=== PATIENT | male | born 1945 | race African-American/Black ===

== ENCOUNTER 2017-11-05 12:57 | Inpatient (IN) | payer OTHER ==
[~2017-11-05] VITALS: Ht 177.8 cm; Wt 68.5 kg
[2017-11-05] MEDS ORDERED: ACETAMINOP160 MG/51 ORAL (13:14)
[2017-11-05] MEDS ORDERED: CATAPRES0.1 MG ORAL (13:14)
[2017-11-05] MEDS ORDERED: BENADRYL25 MG ORAL (13:14)
[2017-11-05] MEDS ORDERED: CHLORPROMAZINE50 MG PO (13:14)
[2017-11-05] MEDS ORDERED: DUONEB 0.5-3(2.53 ML HHN (13:14)
[2017-11-05] MEDS ORDERED: ENEMA133 M1 RC (13:14)
[2017-11-05] MEDS ORDERED: ATORVASTATIN CA20 MG ORAL (13:14)
[2017-11-05] MEDS ORDERED: HYDRALAZINE HCL50 MG ORAL (13:14)
[2017-11-05] MEDS ORDERED: GUAIFENESI100 MG/5 M ORAL (13:14)
[2017-11-05] MEDS ORDERED: FAMOTIDINE20 MG ORAL (13:14)
[2017-11-05] MEDS ORDERED: FERROUS SULFAT325 MG ORAL (13:14)
[2017-11-05] MEDS ORDERED: COLACE100 MG ORAL (13:14)
[2017-11-05] MEDS ORDERED: BACLOFEN10 MG ORAL (13:14)
[2017-11-05] MEDS ORDERED: BENAZEPRIL HCL20 MG ORAL (13:14)
[2017-11-05] MEDS ORDERED: Vancomycin 1.5gm/D5W 250ml 250 ML IVPB ONE (13:15)
[2017-11-05 13:27] LABS: HEMATOCRIT 32.8 % (42.0-52.0); MEAN CORPUSCULAR VOLUME 88 FL (80-99); PLATELET COUNT 205 K/UL (150-450); RED BLOOD COUNT 3.72 M/UL (4.70-6.10); RED CELL DISTRIBUTION WIDTH 11.6 % (11.6-14.8); WHITE BLOOD COUNT 16.2 K/UL (4.8-10.8)
--- NOTE | 2017-11-05 13:29 | Emergency Room Report ---
History of Present Illness General Chief Complaint: Dyspnea/Respdistress Source: Patient Present Illness HPI 72-year-old male with history of hypertension, diabetes, hyperlipidemia, recent cervical spine surgery, as well as stroke with residual left hemiparesis is sent from [facility]. for low oxygen sats. Patient reports no complaints at all, he reports no obvious trouble breathing and reports he is not in any pain, however he is very drowsy. He is alert and oriented to person place situation time, but he appears to be too drowsy to be a reliable historian right now. Allergies: Coded Allergies: No Known Allergies (Unverified , 11/05/17) Patient History Limited by: medical condition Past Medical History: see triage record Reviewed Nursing Documentation: PMH: Agreed; PSxH: Agreed Nursing Documentation-PMH Hx Hypertension: Yes Hx Cerebrovascular Accident: Yes Review of Systems All Other Systems: limited Physical Exam Vital Signs Date Time Temp Pulse Resp B/P (MAP) Pulse Ox O2 Delivery O2 Flow Rate FiO2 11/05/17 12:51 99.8 100 16 135/110 98 Room Air 99.9 Sp02 EP Interpretation: reviewed, abnormal - O2 sat low, and blood pressure low General Appearance: no apparent distress, moderate distress - Drowsy but arousable to verbal stimulus Head: normocephalic, atraumatic Eyes: bilateral eye normal inspection, bilateral eye PERRL, bilateral eye EOMI ENT: normal ENT inspection, hearing grossly normal, normal pharynx, no angioedema, normal voice, moist mucus membranes Neck: normal inspection, full range of motion, supple, supple/symm/no masses, other - Cervical spine with surgical incision wound and ilan clean dry and intact with no erythema or purulence or tenderness Respiratory: chest non-tender, lungs clear, decreased breath sounds - fair air exchange, chest symmetrical, palpation of chest normal Cardiovascular #1: normal peripheral pulses, regular rate, rhythm Cardiovascular #2: 1+ radial (R), 1+ radial (L), 1+ dorsalis pedis (R), 1+ dorsalis pedis (L) Gastrointestinal: normal inspection, non tender, soft, no mass, no guarding, no rebound Rectal: deferred Genitourinary: normal inspection, no CVA tenderness, penis normal Musculoskeletal: back normal, gait/station normal, normal range of motion, non- tender, no calf tenderness Neurologic: responsive - Drowsy but responsive, top stop attacher III-XII nml as tested, motor strength/tone normal - Left upper and left lower extremity weakness as well as mild right lower extremity weakness, sensory intact - Grossly, speech normal Psychiatric: judgement/insight normal, memory normal, mood/affect normal, no suicidal/homicidal ideation Skin: normal color, no rash, warm/dry, normal turgor Lymphatic: no adenopathy Medical Decision Making Diagnostic Impression: Primary Impression: Pneumonia ER Course Patient here with low-grade fever, low O2 sats, concern for possible sepsis due to hypotension as well. He did receive lactic acid, blood cultures, broad- spectrum antibiotics and 30 mL per Kg IV fluid resuscitation upon the first hour of arrival.He was brought in with a pre-existing Thrasher catheter, this catheter was discontinued and a new catheter placed. I do not believe his surgical site to be a source of infection as clinically does not appear to be infected or broken down at all. Patient found to have likely pneumonia, blood pressure improved, will admit after CTA chest for PE evaluation. Diagnosis sepsis. EKG Diagnostic Results EKG Time: 13:08 EP Interpretation: RBBB, LVH criteria Rate: tachycardiac Rhythm: NSR ST Segments: no acute changes ASA given to the pt in ED: No Rhythm Strip Diag. Results Rhythm Strip Time: 13:27 Rate: 100 Rhythm: NSR, no PVC's, no ectopy Chest X-Ray Diagnostic Results Chest X-Ray Diagnostic Results : Chest X-Ray Ordered: Yes # of Views/Limited/Complete: 1 View Indication: Shortness of Breath EP Interpretation: Yes Interpretation: no effusion, no pneumothorax, other - RML/RLL consolidation Impression: Other - RML/RLL Pneumonia Electronically Signed by: Cameron Flanagan MD Reevaluation Time: 14:19 Last Vital Signs Date Time Temp Pulse Resp B/P (MAP) Pulse Ox O2 Delivery O2 Flow Rate FiO2 11/05/17 12:51 99.8 100 16 135/110 98 Room Air 99.9 Status: improved Reevaluation Impression A repeat focused sepsis examination reveals patient with improvement, blood pressure much improved patient alert oriented to person place situation time after fluid status, actually requesting pain medication now for his neck pain from his recent surgery. Disposition: ADMITTED INPATIENT Admit Decision Time: 14:19 Condition: Improved CAMERON FLANAGAN M.D 1, 2018 13:29
--- NOTE | 2017-11-05 13:30 | Emergency Room Report ---
Sepsis Event Note Evaluation Current Stage of Sepsis: Septic Shock Possible Source: Pulmonary Focused Exam Allergies: Coded Allergies: No Known Allergies (Unverified , 11/05/17) Date Exam Occurred: Nov 05, 2017 Time Exam Occurred: 13:29 Laboratory Studies Laboratory Tests Test 11/05/17 13:05 White Blood Count Pending Red Blood Count Pending Hemoglobin Pending Hematocrit Pending Mean Corpuscular Volume Pending Mean Corpuscular Hemoglobin Pending Mean Corpuscular Hemoglobin Concent Pending Red Cell Distribution Width Pending Platelet Count Pending Mean Platelet Volume Pending Neutrophils (%) (Auto) Pending Lymphocytes (%) (Auto) Pending Monocytes (%) (Auto) Pending Eosinophils (%) (Auto) Pending Basophils (%) (Auto) Pending Prothrombin Time Pending Prothromb Time International Ratio Pending Activated Partial Thromboplast Time Pending Urine Color Pending Urine Appearance Pending Urine pH Pending Urine Specific [place] Pending Urine Protein Pending Urine Glucose (UA) Pending Urine Ketones Pending Urine Occult Blood Pending Urine Nitrite Pending Urine Bilirubin Pending Urine Urobilinogen Pending Urine Leukocyte Esterase Pending Sodium Level Pending Potassium Level Pending Chloride Level Pending Carbon Dioxide Level Pending Blood Urea Nitrogen Pending Creatinine Pending Estimat Glomerular Filtration Rate Pending Glucose Level Pending Lactic Acid Level Pending Calcium Level Pending Magnesium Level Pending Total Bilirubin Pending Aspartate Amino Transf (AST/SGOT) Pending Alanine Aminotransferase (ALT/SGPT) Pending Alkaline Phosphatase Pending Total Creatine Kinase Pending Creatine Kinase MB Pending Troponin I Pending Pro-B-Type Natriuretic Peptide Pending Total Protein Pending Albumin Pending Globulin Pending Vital Signs Last 24 Hour Vital Signs Date Time Temp Pulse Resp B/P (MAP) Pulse Ox O2 Delivery O2 Flow Rate FiO2 11/05/17 12:51 99.8 100 16 135/110 98 Room Air 99.9 Respiratory Exam: Diminished Air Movement Cardiovascular Exam: RRR, S1, S2, Murmur Capillary Refill: Less Than 2 Seconds Peripheral Pulse: Strong Pulse Location: Carotid Skin Exam: Normal CAMERON Garzon M.D Nov 05, 2017 13:30
[2017-11-05 13:34] LABS: APPEARANCE,URINE CLOUDY; BILIRUBIN, URINE NEGATIVE (NEGATIVE); GLUCOSE, URINE (UA) NEGATIVE (NEGATIVE); KETONES,URINE 1+ (NEGATIVE); LEUKOCYTE ESTERASE ,URINE 1+ (NEGATIVE); NITRITE,URINE NEGATIVE (NEGATIVE); PH,URINE 6 (4.5-8.0); PROTEIN,URINE 3+ (NEGATIVE); UROBILINOGEN,URINE 4 MG/DL (0.0-1.0)
[2017-11-05 13:35] LABS: COLOR,URINE YELLOW
[2017-11-05 13:41] LABS: ANION GAP 6 mmol/L (5-15); BLOOD UREA NITROGEN 26 mg/dL (7-18); CALCIUM 8.1 MG/DL (8.5-10.1); CARBON DIOXIDE 28 MMOL/L (21-32); CHLORIDE 101 MMOL/L (98-107); CREATININE 1.2 MG/DL (0.55-1.30); POTASSIUM 4.3 MMOL/L (3.5-5.1); SODIUM 135 MMOL/L (136-145)
[2017-11-05 13:49] VITALS: BP 104/87
[2017-11-05 13:55] LABS: ALANINE AMINOTRANSFERASE 28 U/L (12-78); ALBUMIN 2.1 G/DL (3.4-5.0); ALBUMIN/GLOBULIN RATIO 0.6 (1.0-2.7); ALKALINE PHOSPHATASE 55 U/L (46-116); ASPARTATE AMINO TRANSFERASE 35 U/L (15-37); BILIRUBIN,TOTAL 1.2 MG/DL (0.2-1.0); CKMB 2.7 NG/ML (0.0-3.6); CREATINE KINASE 92 U/L (26-308)
[2017-11-05 13:56] LABS: BILIRUBIN,DIRECT 0.3 MG/DL (0.0-0.3)
[2017-11-05] MEDS ORDERED: Piperacillin/Tazobactam 3.375 GM in D5W 55 ML IV SCH (14:00)
--- NOTE | 2017-11-05 14:27 | Diagnostic Imaging Report ---
Indication: Dyspnea Comparison: None A single view chest radiograph was obtained. Findings: Abnormal density in the retrocardiac aspect of the left lung base noted. The heart is mildly enlarged. Bones are osteopenic. IMPRESSION: Left basal pneumonia versus atelectasis. Cardiomegaly
[2017-11-05] MEDS ORDERED: Isovue-370 150ml vial INJ PRN (14:30)
[2017-11-05] MEDS ORDERED: Acetaminophen 500mg (ES) tab ORAL ONE ×2 (14:35→14:45)
--- NOTE | 2017-11-05 16:16 | Diagnostic Imaging Report ---
Indication: Chest pain Technique: Continuous helical transaxial imaging of the chest was obtained from the thoracic inlet to the upper abdomen during rapid intravenous contrast administration. Arterial phase of enhancement obtained. Coronal 2-D reformats were also obtained and maximum intensity projection images in multiple planes. Study obtained in a Siemens sensation [address] Automatic Exposure Control was utilized. Total Dose length Product (DLP): 575.[address] Dose Index Volume (CTDIvol): 15.64 mGy Comparison: None Findings: The pulmonary artery is well opacified and shows no filling defects. There is no adenopathy, pleural or pericardial effusions are identified. Aorta is normal in caliber with no evidence of dissection. There is dense organized consolidation of the left lower lobe and part of the right lower lobe. Findings suspicious for pneumonia. Correlate clinically. No adenopathy appreciated. The visualized part of the upper abdomen is unremarkable. There is a hiatal hernia present. IMPRESSION: No evidence of pulmonary embolus, aortic dissection or aneurysm. Bilateral basilar consolidation/airspace disease suspicious for pneumonia. Correlate clinically. The CT scanner at [facility] is accredited by the [employer] and the scans are performed using dose optimization techniques as appropriate to a performed exam including Automatic Exposure control.
[2017-11-05] MEDS ORDERED: Fleet's Enema 133ml RECTAL PRN (18:45)
[2017-11-05] MEDS ORDERED: Norco 5mg/325mg tab ORAL PRN ×2 (18:45)
[2017-11-05] MEDS ORDERED: Sennosides 8.6mg ORAL PRN (18:45)
[2017-11-05] MEDS ORDERED: Lactulose 20gm/30ml UDC ORAL PRN (19:14)
[2017-11-05 20:00] VITALS: BP 100/65
[2017-11-05] MEDS: Albuterol/Ipratropium 3ml neb HHN SCH ×2 (20:01→23:55)
[2017-11-05] MEDS: Metoprolol 25mg tab ORAL SCH (21:00)
[2017-11-05] MEDS: D5NS 1,000 ML IV SCH (21:14)
[2017-11-05] MEDS: Piperacillin/Tazobactam 3.375 GM in NS 110 ML IVPB SCH (21:25)
[2017-11-06] VITALS: BP 108/73
[2017-11-06] MEDS: Vancomycin 750mg/NS 250ml IVPB SCH ×2 (01:39→15:02)
--- NOTE | 2017-11-06 03:32 | Consultation ---
DATE OF CONSULTATION: 11/05/2017 CARDIOLOGY CONSULTATION CONSULTING PHYSICIAN: Oswaldo Harris M.D. REQUESTING PHYSICIAN: Kody Higgins M.D. REASON FOR CONSULTATION: Elevated troponin level suggesting acute myocardial infarction. HISTORY OF PRESENT ILLNESS: This 72-year-old disabled who is status post cervical laminectomy and has been rehabilitating at a senior living facility. He has a prior stroke with left-sided hemiparesis. He was noted to be hypoxic this afternoon and transported to the emergency room. The patient did not have any shortness of breath or chest pain, but has been increasingly weak, withdrawn and lethargic, although certainly arousable. On arrival to the emergency room, his vitals were notable for a blood pressure 135/110, heart rate 100, respiratory rate 16 and a temperature 99.9 degrees. A diagnostic workup undertaken included an abnormal troponin level of 0.958 prompting this consultation. PAST MEDICAL HISTORY: Cervical disc disease, status post left laminectomy, cerebrovascular disease with prior stroke and left hemiparesis, hypertension, hyperlipidemia, prostatic hypertrophy. MEDICATIONS: Prior to admission, reviewed and reconciled. ALLERGIES: None known. FAMILY HISTORY: Noncontributory. SOCIAL HISTORY: No record of smoking, alcohol, or substance abuse. REVIEW OF SYSTEMS: Cannot be reliably obtained from the patient, however, pertinent data as outlined above. PHYSICAL EXAMINATION: VITAL SIGNS: Blood pressure 104/87, pulse 116, temperature 100 degrees, oxygen saturation on room air 98%. NECK: Surgical site on neck is dry and healed. Jugular venous pressure normal. HEENT: Conjunctiva pink. Oropharynx clear. LUNGS: With coarse breath sounds and rhonchi. CARDIAC: Regular rhythm and rate. Normal S1 and S2 with a fourth heart sound. ABDOMEN: Soft and nontender. EXTREMITIES: No edema. NEUROLOGIC: Left hemiparesis is mild. LABORATORY AND DIAGNOSTIC DATA: Sodium 135, potassium 4.3, bicarbonate 28, BUN 26, creatinine 1.2 and glucose 146. Lactic acid is 2. Albumin is 2.1. Pro-natriuretic peptide is 3491. Troponin 0.966. White count 16.2 and hemoglobin 11. Urinalysis with 40 to 60 red cells and 2 to 4 white cells. Chest x-ray with cardiomegaly and possible retrocardiac infiltrate. EKG, sinus rhythm, right bundle-branch block, left ventricular hypertrophy, nonspecific ST change. CT angiogram of the chest was negative for pulmonary embolus. IMPRESSION: 1. Acute myocardial infarction likely precipitated by hypoxia. 2. Healthcare acquired pneumonia. 3. Cervical disc disease, status post recent laminectomy. 4. Cerebrovascular disease at baseline with left hemiparesis. 5. Hypertensive heart disease, now with lower range blood pressure. 6. Severe protein-calorie malnutrition. 7. Mild renal insufficiency. 8. Acute on chronic systolic and diastolic congestive heart failure. PLAN: 1. Cardiac monitoring. 2. Respiratory hygiene. 3. Nasal oxygen. 4. Bronchodilators. 5. Empiric antibiotics. 6. Hold furosemide. 7. Discontinue hydralazine until blood pressure parameters improves. 8. Maintain anti-platelet and anti-lipid therapy. 9. Continue beta-blockade. 10. Serial troponin levels. 11. We will adjust cardiovascular therapy based on clinical parameters. Oswaldo Harris M.D. DR: MARILU JOB#: [id number] CC:
[2017-11-06 04:00] VITALS: BP 120/75
[2017-11-06] MEDS: Piperacillin/Tazobactam 3.375 GM in NS 110 ML IVPB SCH ×3 (04:20→20:52)
[2017-11-06 05:07] LABS: HEMATOCRIT 29.9 % (42.0-52.0); MEAN CORPUSCULAR VOLUME 88 FL (80-99); PLATELET COUNT 199 K/UL (150-450); RED BLOOD COUNT 3.41 M/UL (4.70-6.10); RED CELL DISTRIBUTION WIDTH 11.7 % (11.6-14.8); WHITE BLOOD COUNT 14.5 K/UL (4.8-10.8)
[2017-11-06 05:40] LABS: ALANINE AMINOTRANSFERASE 24 U/L (12-78); ALBUMIN 1.9 G/DL (3.4-5.0); ALBUMIN/GLOBULIN RATIO 0.6 (1.0-2.7); ALKALINE PHOSPHATASE 51 U/L (46-116); ANION GAP 9 mmol/L (5-15); ASPARTATE AMINO TRANSFERASE 23 U/L (15-37); BILIRUBIN,TOTAL 0.8 MG/DL (0.2-1.0); BLOOD UREA NITROGEN 23 mg/dL (7-18); CALCIUM 7.7 MG/DL (8.5-10.1); CARBON DIOXIDE 26 MMOL/L (21-32); CHLORIDE 105 MMOL/L (98-107); CHOLESTEROL 90 MG/DL (< 200); HDL CHOLESTEROL 41 MG/DL (40-60); POTASSIUM 3.5 MMOL/L (3.5-5.1); SODIUM 139 MMOL/L (136-145); TRIGLYCERIDES 57 MG/DL (30-150)
[2017-11-06] MEDS ORDERED: chlorproMAZINE 25mg tab ORAL PRN (07:00)
[2017-11-06] MEDS: Albuterol/Ipratropium 3ml neb HHN SCH ×3 (07:45→19:18)
[2017-11-06 08:00] VITALS: BP 124/74
[2017-11-06] MEDS ORDERED: HydrALAZINE 50mg tab ORAL SCH (09:00)
[2017-11-06] MEDS: Benazepril 10mg tab ORAL SCH (10:16)
[2017-11-06] MEDS: Metoprolol 25mg tab ORAL SCH ×2 (10:16→21:04)
[2017-11-06] MEDS: Ascorbic Acid 500mg tab ORAL SCH (10:16)
[2017-11-06] MEDS: D5NS 1,000 ML IV SCH ×2 (10:17→23:58)
--- NOTE | 2017-11-06 10:36 | Diagnostic Imaging Report ---
Chest PA and lateral views INDICATION: Cough COMPARISON: Chest x-ray dated 11/05/17 FINDINGS: PA and lateral views of the chest are obtained. Prominent heart size. Atherosclerotic vascular disease. Increasing bilateral lower lung zone opacities with obscuration of the left hemidiaphragm. IMPRESSION: Increasing bilateral lower lung zone opacities with obscuration of the left hemidiaphragm.
[2017-11-06 12:00] VITALS: BP 159/102
[2017-11-06] MEDS: Zinc Sulfate 220mg cap ORAL SCH (12:14)
[2017-11-06] MEDS: Docusate 100mg cap ORAL SCH ×2 (12:15→18:27)
[2017-11-06] MEDS: Acetaminophen 650mg/20.3ml ORAL PRN ×2 (14:09→20:51)
[2017-11-06 16:00] VITALS: BP 120/80
--- NOTE | 2017-11-06 16:09 | History & Physical ---
History and Physical History & Physicial #[id number] pna uti hx of cva with left HP HTN, HLD troponin positive Shahla Grissom DO Nov 06, 2017 16:09
[2017-11-06 20:00] VITALS: BP 154/90
[2017-11-06] MEDS ORDERED: Metoprolol 25mg tab ORAL SCH (22:00)
--- NOTE | 2017-11-06 22:31 | Progress Note ---
DATE: 11/06/2017 Cardiology consult progress note SUBJECTIVE: The patient remains tachycardic and hypoxic with some congestion and shortness of breath. Echocardiogram today revealed normal ejection fraction, mild aortic stenosis with valve area 1.9. Mildly increased pulmonary venous systolic pressure, pleural effusions, and small pericardial effusion noted. Troponin level has decreased from 0.966 to 0.764. PHYSICAL EXAMINATION: VITAL SIGNS: Blood pressure 154/90, heart rate 133, respiratory rate 20 to 24, T-max 100.6. LUNGS: Bilateral rhonchi diminished at the bases. HEART: Regular rhythm. Rapid rate. Normal S1, S2. ABDOMEN: Soft EXTREMITIES: Trace edema. IMPRESSION: 1. Bilateral pneumonia. 2. Hypoxia. 3. Pleural effusions. 4. Small pericardial effusion of no hemodynamic significance. 5. Secondary sinus tachycardia. 6. Hypoxia. 7. Degenerative aortic valve stenosis. 8. Mild pulmonary hypertension. PLAN: 1. Advance beta-destiny. 2. Continue hydration. 3. Antimicrobials. 4. Respiratory hygiene. 5. Oxygen supplementation. 6. DVT prophylaxis remains high risk. 7. Consider thoracentesis. Oswaldo Harris M.D. DR: Presley JOB#: [id number] CC:
--- NOTE | 2017-11-06 23:31 | History and Physical Report ---
DATE OF ADMISSION: 11/05/2017 REASON FOR ADMISSION: Shortness of breath. HISTORY OF PRESENT ILLNESS: The patient is a 72-year-old gentleman with history of hypertension, diabetes, recent cervical spine surgery states he has not ambulated since August. He has history of stroke with dense left hemiparesis, found with low O2 saturations. He has had cough with some phlegm production. He has a history of COPD and smoking. Does not use inhalers or breathing treatments at home. He has no recent nausea, vomiting, or diarrhea. PAST MEDICAL HISTORY: Again diabetes, hypertension, hyperlipidemia, stroke with left hemiparesis, COPD. SURGICAL HISTORY: Includes recent cervical spine surgery. MEDICATIONS: Pre-hospital and present medications reviewed, reconciled, documented in the electronic medical record by dose, frequency, and route. SOCIAL HISTORY: Currently negative for tobacco, alcohol, or drugs. FAMILY HISTORY: Noncontributory. PHYSICAL EXAMINATION: GENERAL: At the time my exam, he is alert, he is oriented. He is in no acute respiratory distress. VITAL SIGNS: He is currently febrile at 101.4, pulse 133, respirations 20, 98% on room air. HEENT: Normocephalic and atraumatic. Oropharynx is moist. Poor dentition is noted. LUNGS: Bilateral rhonchi. Decreased breath sounds at the bases. HEART: Regular but tachy. ABDOMEN: Soft and nontender. EXTREMITIES: Lower extremity wounds are noted. Hemiparesis noted in left upper and lower extremity with normal function of the right upper and lower extremity. LABORATORY AND DIAGNOSTIC DATA: White count is 14.5, hemoglobin 10, and platelets are 199. Sodium is 139, potassium 3.5, chloride 105, bicarb 26, BUN 23, creatinine 1, glucose 81. His troponin, one was 0.966 and second one was 0.764. TSH is low at 0.335. His urinalysis is positive for leukocyte esterase. Chest x-ray with left lower lobe infiltrate. CT scan of his chest was obtained, no evidence of PE or aortic dissection, bilateral basal consolidation, suspicious for pneumonia. ASSESSMENT AND PLAN: 1. Pneumonia. 2. Urinary tract infection. 3. Sepsis. 4. Febrile. 5. Diabetes. 6. Hypertension. 7. Recent spine surgery. 8. History of stroke with dense left hemiparesis. PLAN: He is currently receiving IV antibiotics including vancomycin and Zosyn. We will continue follow up blood, urine, and sputum cultures. His urine is growing gram-negative rods. Repeat labs and chest x-ray in the morning. Tylenol for fever. Wound care. P.o. as tolerated. Aspiration precautions at all times and we will continue to follow the patient for the remainder of his hospital stay. Shahla Grissom D.O. DR: Faith JOB#: [id number] CC:
[2017-11-07] MEDS: Albuterol/Ipratropium 3ml neb HHN SCH ×4 (01:10→21:23)
[2017-11-07 04:00] VITALS: BP 140/90
[2017-11-07] MEDS: Vancomycin 1gm/D5W 275ml IVPB SCH ×4 (04:03→16:30)
[2017-11-07 05:00] LABS: HEMOGLOBIN 9.1 G/DL (14.2-18.0); MEAN CORPUSCULAR VOLUME 88 FL (80-99); PLATELET COUNT 173 K/UL (150-450); RED BLOOD COUNT 2.96 M/UL (4.70-6.10); RED CELL DISTRIBUTION WIDTH 11.6 % (11.6-14.8); WHITE BLOOD COUNT 14.4 K/UL (4.8-10.8)
[2017-11-07] MEDS: Piperacillin/Tazobactam 3.375 GM in NS 110 ML IVPB SCH ×3 (05:11→21:12)
[2017-11-07 06:18] LABS: ANION GAP 8 mmol/L (5-15); BLOOD UREA NITROGEN 19 mg/dL (7-18); CALCIUM 7.8 MG/DL (8.5-10.1); CARBON DIOXIDE 25 MMOL/L (21-32); CHLORIDE 107 MMOL/L (98-107); POTASSIUM 3.6 MMOL/L (3.5-5.1); SODIUM 140 MMOL/L (136-145)
[2017-11-07 08:00] VITALS: BP 150/96
--- NOTE | 2017-11-07 08:38 | Pulmonology Progress Note ---
Assessment/Plan Assessment/Plan ASSESSMENT AND PLAN: 1. Pneumonia. 2. Urinary tract infection. 3. Sepsis. 4. Febrile. 5. Diabetes. 6. Hypertension. 7. Recent spine surgery. 8. History of stroke with dense left hemiparesis. 9. NSTEMI 10 LUIS with obstruction on echo watch IO po Iv abx cxr still with bilateral infiltrates nebs wound care sherman for now check labs and trending tropopnins Subjective Constitutional: Reports: no symptoms HEENT: Repors: no symptoms Respiratory: Reports: no symptoms Cardiovascular: Reports: no symptoms Gastrointestinal/Abdominal: Reports: no symptoms Allergies: Coded Allergies: No Known Allergies (Unverified , 11/05/17) Subjective no cp tolerating po purulent phlegm expectorated on o2 positive uop Objective Last 24 Hour Vital Signs Date Time Temp Pulse Resp B/P (MAP) Pulse Ox O2 Delivery O2 Flow Rate FiO2 11/07/17 08:00 98.8 92 20 150/96 96 Nasal Cannula 2.0 98.8 11/07/17 04:00 88 11/07/17 04:00 97.2 92 22 140/90 96 Nasal Cannula 2.0 97.2 11/07/17 01:20 97 22 94 Nasal Cannula 2.0 28 11/07/17 01:09 97 22 94 Nasal Cannula 2.0 28 11/07/17 01:09 28 11/06/17 23:57 97 134/90 11/06/17 21:21 98.9 11/06/17 21:04 133 154/90 11/06/17 20:51 100.6 11/06/17 20:00 100.6 133 22 154/90 94 Room Air 100.6 11/06/17 19:26 125 24 97 Room Air 2.0 28 11/06/17 19:16 28 11/06/17 19:15 125 24 93 Room Air 2.0 28 11/06/17 19:07 125 24 Room Air 21 11/06/17 16:00 126 11/06/17 16:00 101.0 121 24 120/80 93 Room Air 101.0 11/06/17 14:09 101.4 11/06/17 13:59 133 20 98 Room Air 11/06/17 13:49 137 20 91 Room Air 21 11/06/17 12:00 113 11/06/17 12:00 101.4 117 20 159/102 92 Room Air 101.4 11/06/17 10:16 131 124/74 11/06/17 10:16 124/74 Intake and Output 11/06/17 11/07/17 19:00 07:00 Intake Total 1743.334 ml 1717.500 ml Output Total 750 ml 850 ml Balance 993.334 ml 867.500 ml Intake Oral 700 ml 480 ml IV Total 1043.334 ml 1237.500 ml Output Urine Total 750 ml 850 ml General Appearance: WD/WN HEENT: atraumatic, anicteric Respiratory/Chest: crackles/rales, rhonchi Cardiovascular: normal rate, regular rhythm Abdomen: soft, non tender, non distended Skin: no ulcers 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, alert, oriented x 3 Microbiology Date/Time Source Procedure Growth Status 11/05/17 13:05 Blood Blood Culture - Preliminary NO GROWTH AFTER 24 HOURS Resulted 11/05/17 13:05 Blood Blood Culture - Preliminary NO GROWTH AFTER 24 HOURS Resulted 11/05/17 13:05 Urine,Clean Catch Urine Culture - Final Escherichia Coli Complete 11/05/17 15:30 Rectum VRE Culture - Final Enterococcus Faecalis - Vre Complete Laboratory Tests 11/07/17 00:30: Vancomycin Level Trough 13.4H 11/07/17 03:00: White Blood Count 14.4H, Red Blood Count 2.96L, Hemoglobin 9.1L, Hematocrit 26.0L, Mean Corpuscular Volume 88, Mean Corpuscular Hemoglobin 30.9, Mean Corpuscular Hemoglobin Concent 35.1, Red Cell Distribution Width 11.6, Platelet Count 173, Mean Platelet Volume 6.6, Neutrophils (%) (Auto) , Lymphocytes (%) ( Auto) , Monocytes (%) (Auto) , Eosinophils (%) (Auto) , Basophils (%) (Auto) , Differential Total Cells Counted 100, Neutrophils % (Manual) 87H, Lymphocytes % (Manual) 8L, Monocytes % (Manual) 5, Eosinophils % (Manual) 0, Basophils % ( Manual) 0, Band Neutrophils 0, Platelet Estimate Adequate, Platelet Morphology Normal, Hypochromasia 1+, Sodium Level 140, Potassium Level 3.6, Chloride Level 107, Carbon Dioxide Level 25, Anion Gap 8, Blood Urea Nitrogen 19H, Creatinine 1.0, Estimat Glomerular Filtration Rate , Glucose Level 90, Calcium Level 7.8L, Magnesium Level 2.2, Troponin I 0.765H, Pro-B-Type Natriuretic Peptide 2360H Current Medications Medications (Trade) Dose Ordered Sig/[place] Route PRN Reason Start Time Stop Time Status Last Admin Dose Admin Acetaminophen (Tylenol) 650 mg Q6H PRN ORAL Mild Pain/Temp > 100.5 11/05/17 18:45 12/05/17 18:44 11/06/17 20:51 Acetaminophen/ Hydrocodone Bitart ([place] 5/325) 1 tab Q6H PRN ORAL MODERATE PAIN (4-6) 11/05/17 18:45 11/12/17 18:44 Acetaminophen/ Hydrocodone Bitart ([place] 5/325) 2 tab Q6H PRN ORAL Severe Pain (Pain Scale 7-10) 11/05/17 18:45 11/12/17 18:44 Albuterol/ Ipratropium (Albuterol/ Ipratropium) 3 ml Q6HRT HHN 11/05/17 19:00 11/10/17 18:59 11/07/17 01:10 Ascorbic Acid (Vitamin C) 500 mg DAILY ORAL 11/06/17 09:00 12/06/17 08:59 11/06/17 10:16 Atorvastatin Calcium (Lipitor) 10 mg BEDTIME ORAL 11/05/17 21:00 12/05/17 20:59 11/06/17 20:51 Baclofen (Lioresal) 10 mg Q8H PRN ORAL intractable hiccups 11/05/17 19:11 12/05/17 19:10 Benazepril HCl (Lotensin) 20 mg DAILY ORAL 11/06/17 09:00 12/06/17 08:59 11/06/17 10:16 Chlorpromazine (Thorazine) 50 mg TIDPRN PRN ORAL HICCUPS 11/06/17 07:00 12/06/17 06:59 Clonidine HCl (Catapres Tab) 0.1 mg EVERY 6 HOURS PRN ORAL For High Blood Pressure 11/05/17 18:45 12/05/17 18:44 Dextrose/Sodium Chloride 1,000 ml @ 75 mls/hr [id number] IV 11/05/17 19:00 12/05/17 18:59 11/06/17 23:58 Diphenhydramine HCl (Benadryl) 25 mg Q4H PRN ORAL Itching 11/05/17 19:13 12/05/17 19:12 11/07/17 04:30 Docusate Sodium (Colace) 100 mg TWICE A DAY ORAL 11/06/17 09:00 12/06/17 08:59 11/06/17 18:27 Famotidine (Pepcid) 20 mg EVERY 12 HOURS ORAL 11/05/17 21:00 12/05/17 20:59 11/06/17 20:51 Ferrous Sulfate (Feosol) 325 mg DAILY ORAL 11/06/17 09:00 12/06/17 08:59 11/06/17 10:16 Iopamidol (Isovue-370 150ml) 150 ml NOW PRN INJ Radiology Procedure 11/05/17 14:30 11/07/17 14:22 Lactulose (Cephulac) 20 gm Q6H PRN ORAL Constipation 11/05/17 19:14 12/05/17 19:13 Metoprolol Tartrate (Lopressor) 50 mg Q12HR ORAL 11/07/17 09:00 12/07/17 08:59 Multivitamins (Multivitamins) 1 tab DAILY ORAL 11/06/17 09:00 12/06/17 08:59 11/06/17 10:16 Ondansetron HCl (Zofran ODT) 4 mg Q6H PRN ORAL Nausea & Vomiting 11/05/17 19:12 12/05/17 19:11 Piperacillin Sod/ Tazobactam Sod 3.375 gm/Sodium Chloride 110 ml @ 27.5 mls/hr Q8H IVPB 11/05/17 20:30 11/12/17 23:59 11/07/17 05:11 Sennosides (Senokot) 2 tab HSPRN PRN ORAL Constipation 11/05/17 18:45 12/05/17 18:44 Sodium Phosphate (Fleet's Sodium Phosl Enema) 133 ml DAILYPRN PRN RECTAL CONSTIPATION 11/05/17 18:45 12/05/17 18:44 Vancomycin HCl (Vanco rx to dose) 1 ea DAILY PRN MISC Per rx protocol 11/05/17 19:30 12/05/17 19:29 Vancomycin HCl 1 gm/Dextrose 275 ml @ 183.708 mls/hr Q12H IVPB 11/07/17 03:00 11/12/17 02:59 11/07/17 04:03 Zinc Sulfate (Zinc Sulfate) 220 mg DAILY ORAL 11/06/17 09:00 12/06/17 08:59 11/06/17 12:14 Shahla Grissom DO Nov 07, 2017 08:38
[2017-11-07] MEDS: Benazepril 10mg tab ORAL SCH (09:10)
[2017-11-07] MEDS: Ascorbic Acid 500mg tab ORAL SCH (09:10)
[2017-11-07] MEDS: Docusate 100mg cap ORAL SCH ×2 (09:10→17:30)
[2017-11-07] MEDS: Zinc Sulfate 220mg cap ORAL SCH (09:11)
[2017-11-07] MEDS: Metoprolol 25mg tab ORAL SCH ×2 (09:11→21:15)
--- NOTE | 2017-11-07 10:39 | Diagnostic Imaging Report ---
INDICATION: COPD COMPARISON: Chest x-ray dated 11-06-17 FINDINGS: Single frontal view demonstrates prominent heart size. Bilateral lower lung zone opacities, grossly unchanged. The visualized osseous structures are within normal limits. IMPRESSION: Prominent heart size. Bilateral lower lung zone opacities, grossly unchanged.
[2017-11-07] MEDS: D5NS 1,000 ML IV SCH ×2 (11:00→23:18)
[2017-11-07] MEDS ORDERED: D5NS 1000ml IV ONE ×2 (11:04→15:22)
[2017-11-07] MEDS ORDERED: Tubing IV Secondary IV ONE ×2 (11:04→15:22)
[2017-11-07 12:00] VITALS: BP 132/95
[2017-11-07] MEDS ORDERED: NS 500ML ONE (15:22)
[2017-11-07 16:00] VITALS: BP 148/98
--- NOTE | 2017-11-07 16:23 | Cardiology Report ---
APPROVED REPORT EXAM: Two-dimensional and M-mode echocardiogram with Doppler and color Doppler. INDICATION Acute myocard infarction M-Mode DIMENSIONS IVSd2.0 (0.7-1.1cm)Left Atrium (MM)4.6 (1.6-4.0cm) LVDd4.0 (3.5-5.6cm)Aortic Root3.4 (2.0-3.7cm) PWd1.5 (0.7-1.1cm)Aortic Cusp Exc.2.1 (1.5-2.0cm) LVDs1.7 (2.5-4.0cm) PWs2.0 cm Normal left ventricular chamber size, systolic function and wall motion. Left ventricular ejection fraction estimated to be 60-65%. Severe left ventricular hypertrophy. Small anterior and posterior pericardial effusion. Large posterior pleural effusion. Right cardiac chamber sizes are within normal limits. Mild left atrial enlargement by 2D. Focal aortic valve sclerosis with adequate cusp excursion. Thickened mitral valve leaflets with normal excursion. Systolic anterior motion of mitral leaflet (LUIS) consistent with obstructive cardiomyopathy. Mild mitral annulus and aortic root calcification. Pulmonic valve not well visualized. Normal tricuspid valve structure. IVC is normal in size and collapsible with respiration. A color flow and spectral Doppler study was performed and revealed: No aortic regurgitation. peak aortic valve gradient of 29mm Hg and a mean of 14 mmHg (may partially be due to increased subvalvular gradient) Aortic valve area 1.5 cm2 calculated by continuity equation. Peak LVOT gradient of 19mm Hg and a mean of 9 mmHg. Mild mitral regurgitation. Mitral diastolic function not obtainable due to A-FIB. Mild tricuspid regurgitation. Tricuspid systolic velocities suggests peak right ventricular systolic pressure of 40 mmHg Consistent with mild pulmonary hypertension. Critical criteria: JESSICA Farah and Dr. Harris have been notified on 11/06/17 at 11 pm
--- NOTE | 2017-11-07 17:04 | Cardiology Report ---
APPROVED REPORT EKG Measurement Heart [id number] Sinus tachycardia Right bundle branch block Left ventricular hypertrophy with repolarization abnormality Abnormal ECG
[2017-11-07 20:00] VITALS: BP 168/104
[2017-11-08 00:14] VITALS: BP 150/96
--- NOTE | 2017-11-08 02:00 | Progress Note ---
DATE: 11/07/2017 CARDIOLOGY PROGRESS NOTE SUBJECTIVE: The patient is seen and evaluated with his at bedside. The patient feels better today. Less short of breath. He is able to mobilize secretions better. Heart rate control is improved. OBJECTIVE: VITAL SIGNS: Blood pressure 153/96, pulse 92, respirations 20, afebrile, T-max 100.6 degrees, and oxygen saturation on two liters is 94% to 96%. LUNGS: Bilateral rales. Scattered rhonchi. No wheezing. HEART: Regular rhythm and rate. Normal S1 and S2 with a fourth heart sound. ABDOMEN: Soft and nontender. EXTREMITIES: No edema. LABORATORY AND DIAGNOSTIC DATA: White count 14.4 and hemoglobin 9.1. Potassium 3.6, BUN 19, creatinine 1.0, and magnesium 2.2. Troponin is 0.765. Pro-natriuretic peptide is 2360. Chest x-ray today reveals bilateral lower lung opacities without change. IMPRESSION: 1. Acute myocardial infarction, non-ST elevation type. 2. Hypoxia due to pneumonia. 3. Healthcare-acquired pneumonia. 4. Sepsis, recovering. 5. Urinary tract infection. 6. Severe protein-calorie malnutrition. 7. Status post cervical laminectomy. 8. Severe functional decline. 9. Aspiration risk. 10. Acute and chronic diastolic congestive heart failure. PLAN: 1. Nasal oxygen. 2. Bronchodilators. 3. Respiratory hygiene. 4. Antibiotics. 5. Reassess for diuresis. 6. Maximize antihypertensive and anti-failure regimen. 7. Continue anti-platelet therapy, statin drug, and beta-blockade. Oswaldo Harris M.D. : Keron JOB#: [id number] CC:
[2017-11-08] MEDS: Albuterol/Ipratropium 3ml neb HHN SCH ×4 (02:09→19:39)
[2017-11-08] MEDS: Vancomycin 1gm/D5W 275ml IVPB SCH ×4 (03:39→15:21)
[2017-11-08 04:00] VITALS: BP 149/92
[2017-11-08] MEDS: Piperacillin/Tazobactam 3.375 GM in NS 110 ML IVPB SCH ×3 (05:04→20:10)
[2017-11-08 05:06] LABS: BASOPHILS % (AUTO) 0.7 % (0.0-2.0); EOSINOPHILS % (AUTO) 0.6 % (0.0-3.0); HEMATOCRIT 28.4 % (42.0-52.0); HEMOGLOBIN 9.6 G/DL (14.2-18.0); LYMPHOCYTES % (AUTO) 9.9 % (20.0-45.0); MEAN CORPUSCULAR VOLUME 87 FL (80-99); MONOCYTES % (AUTO) 6.9 % (1.0-10.0); NEUTROPHILS % (AUTO) 81.9 % (45.0-75.0); PLATELET COUNT 208 K/UL (150-450); RED BLOOD COUNT 3.26 M/UL (4.70-6.10); RED CELL DISTRIBUTION WIDTH 11.5 % (11.6-14.8); WHITE BLOOD COUNT 9.6 K/UL (4.8-10.8)
[2017-11-08 05:42] LABS: ANION GAP 9 mmol/L (5-15); BLOOD UREA NITROGEN 16 mg/dL (7-18); CALCIUM 8.4 MG/DL (8.5-10.1); CARBON DIOXIDE 24 MMOL/L (21-32); CHLORIDE 105 MMOL/L (98-107); CREATININE 0.8 MG/DL (0.55-1.30); POTASSIUM 3.8 MMOL/L (3.5-5.1); SODIUM 138 MMOL/L (136-145)
[2017-11-08 08:00] VITALS: BP 146/76
--- NOTE | 2017-11-08 08:51 | Pulmonology Progress Note ---
Assessment/Plan Assessment/Plan Pneumonia. Sepsis. Febrile. Diabetes. Hypertension. Recent spine surgery. History of stroke with dense left hemiparesis. NSTEMI LUIS with obstruction on echo alert, no c/o eating well dc IVF cont abx dc plan tomorrow to [facility] Subjective Constitutional: Denies: fever, chills Respiratory: Reports: productive cough; Denies: shortness of breath Allergies: Coded Allergies: No Known Allergies (Unverified , 11/05/17) Objective Last 24 Hour Vital Signs Date Time Temp Pulse Resp B/P (MAP) Pulse Ox O2 Delivery O2 Flow Rate FiO2 11/08/17 08:00 99.1 96 23 146/76 98 Nasal Cannula 2.0 99.1 11/08/17 06:58 91 18 100 Nasal Cannula 2.0 28 11/08/17 06:58 Nasal Cannula 2.0 28 11/08/17 06:48 89 16 100 Nasal Cannula 2.0 28 11/08/17 04:00 98.9 93 20 149/92 97 Nasal Cannula 2.0 98.9 11/08/17 04:00 89 11/08/17 02:00 92 20 97 Nasal Cannula 2.0 28 11/08/17 02:00 94 20 98 Nasal Cannula 2.0 28 11/08/17 00:14 99.0 86 20 150/96 97 Nasal Cannula 2.0 99.0 11/08/17 00:00 87 11/07/17 21:15 89 168/104 11/07/17 20:00 98.6 96 20 168/104 98 Nasal Cannula 2.0 98.6 11/07/17 20:00 108 11/07/17 19:30 96 20 98 Nasal Cannula 2.0 28 11/07/17 19:30 98 18 99 Nasal Cannula 2.0 28 11/07/17 16:00 98.1 91 20 148/98 97 Nasal Cannula 2.0 98.1 11/07/17 16:00 91 11/07/17 13:38 89 18 99 Nasal Cannula 2.0 28 11/07/17 13:29 28 11/07/17 13:28 86 20 96 Nasal Cannula 2.0 28 11/07/17 12:00 98.2 90 20 132/95 97 Nasal Cannula 2.0 98.2 11/07/17 11:46 88 11/07/17 09:23 102 20 96 Nasal Cannula 2.0 28 11/07/17 09:16 28 11/07/17 09:13 102 20 95 Nasal Cannula 2.0 28 11/07/17 09:11 101 150/96 11/07/17 09:10 150/96 Intake and Output 11/07/17 11/08/17 19:00 07:00 Intake Total 552.5 ml 870.000 ml Output Total 700 ml 500 ml Balance -147.5 ml 370.000 ml Intake Oral 450 ml 280 ml IV Total 102.5 ml 590.000 ml Output Urine Total 700 ml 500 ml General Appearance: no acute distress Respiratory/Chest: decreased breath sounds Cardiovascular: normal rate Microbiology Date/Time Source Procedure Growth Status 11/05/17 13:05 Blood Blood Culture - Preliminary NO GROWTH AFTER 48 HOURS Resulted 11/05/17 13:05 Blood Blood Culture - Preliminary NO GROWTH AFTER 48 HOURS Resulted 11/05/17 15:30 Nasal Nares MRSA Culture - Final NO METHICILLIN RESISTANT STAPH AUREUS... Complete 11/05/17 13:05 Urine,Clean Catch Urine Culture - Final Escherichia Coli Complete 11/05/17 15:30 Rectum VRE Culture - Final Enterococcus Faecalis - Vre Complete Laboratory Tests 11/08/17 03:25: White Blood Count 9.6, Red Blood Count 3.26L, Hemoglobin 9.6L, Hematocrit 28.4L , Mean Corpuscular Volume 87, Mean Corpuscular Hemoglobin 29.4, Mean Corpuscular Hemoglobin Concent 33.8, Red Cell Distribution Width 11.5L, Platelet Count 208, Mean Platelet Volume 7.1, Neutrophils (%) (Auto) 81.9H, Lymphocytes (%) (Auto) 9.9L, Monocytes (%) (Auto) 6.9, Eosinophils (%) (Auto) 0.6, Basophils (%) (Auto) 0.7, Sodium Level 138, Potassium Level 3.8, Chloride Level 105, Carbon Dioxide Level 24, Anion Gap 9, Blood Urea Nitrogen 16, Creatinine 0.8, Estimat Glomerular Filtration Rate , Glucose Level 79, Calcium Level 8.4L, Troponin I 0.749H Current Medications Medications (Trade) Dose Ordered Sig/[place] Route PRN Reason Start Time Stop Time Status Last Admin Dose Admin Acetaminophen (Tylenol) 650 mg Q6H PRN ORAL Mild Pain/Temp > 100.5 11/05/17 18:45 12/05/17 18:44 11/06/17 20:51 Acetaminophen/ Hydrocodone Bitart ([place]rightwood 5/325) 1 tab Q6H PRN ORAL MODERATE PAIN (4-6) 11/05/17 18:45 11/12/17 18:44 Acetaminophen/ Hydrocodone Bitart (Brightwood 5/325) 2 tab Q6H PRN ORAL Severe Pain (Pain Scale 7-10) 11/05/17 18:45 11/12/17 18:44 Albuterol/ Ipratropium (Albuterol/ Ipratropium) 3 ml Q6HRT HHN 11/05/17 19:00 11/10/17 18:59 11/08/17 06:48 Ascorbic Acid (Vitamin C) 500 mg DAILY ORAL 11/06/17 09:00 12/06/17 08:59 11/07/17 09:10 Aspirin (Ecotrin) 81 mg DAILY ORAL 11/08/17 09:00 12/08/17 08:59 Atorvastatin Calcium (Lipitor) 10 mg BEDTIME ORAL 11/05/17 21:00 12/05/17 20:59 11/07/17 21:15 Baclofen (Lioresal) 10 mg Q8H PRN ORAL intractable hiccups 11/05/17 19:11 12/05/17 19:10 Benazepril HCl (Lotensin) 40 mg DAILY ORAL 11/08/17 09:00 12/08/17 08:59 Chlorpromazine (Thorazine) 50 mg TIDPRN PRN ORAL HICCUPS 11/06/17 07:00 12/06/17 06:59 Clonidine HCl (Catapres Tab) 0.1 mg EVERY 6 HOURS PRN ORAL For High Blood Pressure 11/05/17 18:45 12/05/17 18:44 Diphenhydramine HCl (Benadryl) 25 mg Q4H PRN ORAL Itching 11/05/17 19:13 12/05/17 19:12 11/08/17 02:27 Docusate Sodium (Colace) 100 mg TWICE A DAY ORAL 11/06/17 09:00 12/06/17 08:59 11/07/17 17:30 Famotidine (Pepcid) 20 mg EVERY 12 HOURS ORAL 11/05/17 21:00 12/05/17 20:59 11/07/17 21:15 Ferrous Sulfate (Feosol) 325 mg DAILY ORAL 11/06/17 09:00 12/06/17 08:59 11/07/17 09:10 Lactulose (Cephulac) 20 gm Q6H PRN ORAL Constipation 11/05/17 19:14 12/05/17 19:13 Metoprolol Tartrate (Lopressor) 75 mg Q12HR ORAL 11/08/17 09:00 12/08/17 08:59 Multivitamins (Multivitamins) 1 tab DAILY ORAL 11/06/17 09:00 12/06/17 08:59 11/07/17 09:11 Ondansetron HCl (Zofran ODT) 4 mg Q6H PRN ORAL Nausea & Vomiting 11/05/17 19:12 12/05/17 19:11 Piperacillin Sod/ Tazobactam Sod 3.375 gm/Sodium Chloride 110 ml @ 27.5 mls/hr Q8H IVPB 11/05/17 20:30 11/12/17 23:59 11/08/17 05:04 Sennosides (Senokot) 2 tab HSPRN PRN ORAL Constipation 11/05/17 18:45 12/05/17 18:44 Sodium Phosphate (Fleet's Sodium Phosl Enema) 133 ml DAILYPRN PRN RECTAL CONSTIPATION 11/05/17 18:45 12/05/17 18:44 Vancomycin HCl (Vanco rx to dose) 1 ea DAILY PRN MISC Per rx protocol 11/05/17 19:30 12/05/17 19:29 Vancomycin HCl 1 gm/Dextrose 275 ml @ 183.708 mls/hr Q12H IVPB 11/07/17 03:00 11/12/17 02:59 11/08/17 03:39 Zinc Sulfate (Zinc Sulfate) 220 mg DAILY ORAL 11/06/17 09:00 12/06/17 08:59 11/07/17 09:11 Kody Higgins MD Nov 08, 2017 08:51
[2017-11-08] MEDS ORDERED: Benazepril 10mg tab ORAL SCH (09:00)
[2017-11-08] MEDS ORDERED: Aspirin EC 81mg tab ORAL SCH (09:00)
[2017-11-08] MEDS ORDERED: Metoprolol 25mg tab ORAL SCH (09:00)
[2017-11-08] MEDS: Docusate 100mg cap ORAL SCH ×2 (09:07→17:48)
[2017-11-08] MEDS: Zinc Sulfate 220mg cap ORAL SCH (09:08)
[2017-11-08] MEDS: Ascorbic Acid 500mg tab ORAL SCH (09:08)
[2017-11-08 09:25] LABS: BASOPHILS % (AUTO) 0.9 % (0.0-2.0); EOSINOPHILS % (AUTO) 0.5 % (0.0-3.0); HEMOGLOBIN 10.4 G/DL (14.2-18.0); LYMPHOCYTES % (AUTO) 9.5 % (20.0-45.0); MEAN CORPUSCULAR VOLUME 87 FL (80-99); MONOCYTES % (AUTO) 8.1 % (1.0-10.0); PLATELET COUNT 224 K/UL (150-450); RED BLOOD COUNT 3.56 M/UL (4.70-6.10); RED CELL DISTRIBUTION WIDTH 11.5 % (11.6-14.8); WHITE BLOOD COUNT 9.9 K/UL (4.8-10.8)
[2017-11-08 10:06] LABS: ANION GAP 8 mmol/L (5-15); BLOOD UREA NITROGEN 14 mg/dL (7-18); CALCIUM 8.3 MG/DL (8.5-10.1); CARBON DIOXIDE 25 MMOL/L (21-32); CHLORIDE 106 MMOL/L (98-107); CHOLESTEROL 110 MG/DL (< 200); CREATININE 0.8 MG/DL (0.55-1.30); HDL CHOLESTEROL 36 MG/DL (40-60); POTASSIUM 3.9 MMOL/L (3.5-5.1); SODIUM 139 MMOL/L (136-145); TRIGLYCERIDES 69 MG/DL (30-150)
[2017-11-08 12:00] VITALS: BP 156/99
[2017-11-08 16:00] VITALS: BP 158/99
[2017-11-08] MEDS ORDERED: Acetaminophen 650mg/20.3ml ORAL PRN (18:45)
[2017-11-08] MEDS ORDERED: Norco 5mg/325mg tab ORAL PRN ×2 (18:45)
[2017-11-08] MEDS ORDERED: Sennosides 8.6mg ORAL PRN (18:45)
[2017-11-08] MEDS ORDERED: Fleet's Enema 133ml RECTAL PRN (18:45)
[2017-11-08] MEDS ORDERED: Lactulose 20gm/30ml UDC ORAL PRN (19:15)
[2017-11-08 20:00] VITALS: BP 157/93
[2017-11-08] MEDS: Metoprolol 25mg tab ORAL SCH (20:38)
[2017-11-09] VITALS: BP 152/99
[2017-11-09] MEDS: Albuterol/Ipratropium 3ml neb HHN SCH ×3 (01:28→12:47)
[2017-11-09] MEDS ORDERED: Vancomycin 1 GM in D5W 275 ML IVPB SCH (03:00)
--- NOTE | 2017-11-09 03:45 | Progress Note ---
DATE: 11/08/2017 CARDIOLOGY PROGRESS NOTE SUBJECTIVE: The patient remains with cough, congestion, and some shortness of breath. Overall, secretions have decreased. His temperature max 99.1 degrees and oxygen saturation is 98% on 2 liters. OBJECTIVE: VITAL SIGNS: Blood pressure 146/76, pulse 96, and respiratory rate 23. NECK: Cervical collar in place. LUNGS: Bilateral breath sounds. Scattered rhonchi. HEART: Regular rhythm and rate. Normal S1 and S2. A 1/6 systolic ejection murmur at base. ABDOMEN: Soft and nontender. EXTREMITIES: Trace edema. IMPRESSION: 1. Healthcare-acquired pneumonia, improved. 2. Acute myocardial infarction precipitated by severe hypoxia. 3. Sepsis, recovered. 4. History of CVA with left hemiparesis. 5. Recent cervical spine surgery. 6. Obstructive cardiomyopathy with systolic anterior motion. PLAN: 1. Maintain beta-destiny. 2. Anti-platelet therapy. 3. Maintain adequate hydration. 4. Continue antimicrobials, bronchodilators, and respiratory hygiene. 5. Agree with discharge planning. Oswaldo Harris M.D. DR: MARILU JOB#: [id number] CC:
[2017-11-09 04:00] VITALS: BP 150/94
[2017-11-09] MEDS: Piperacillin/Tazobactam 3.375 GM in NS 110 ML IVPB SCH (04:11)
[2017-11-09] MEDS ORDERED: chlorproMAZINE 25mg tab ORAL PRN (07:00)
[2017-11-09 08:00] VITALS: BP 164/82
[2017-11-09] MEDS ORDERED: Benazepril 10mg tab ORAL SCH (09:00)
[2017-11-09] MEDS ORDERED: Aspirin EC 81mg tab ORAL SCH (09:00)
[2017-11-09] MEDS ORDERED: Docusate 100mg cap ORAL SCH (09:00)
[2017-11-09] MEDS ORDERED: Zinc Sulfate 220mg cap ORAL SCH (09:00)
[2017-11-09] MEDS ORDERED: Ascorbic Acid 500mg tab ORAL SCH (09:00)
[2017-11-09] MEDS: Metoprolol 25mg tab ORAL SCH (09:23)
[2017-11-09 12:00] VITALS: BP 151/98
[2017-11-09] MEDS ORDERED: Tubing IV Secondary IV ONE (14:47)
[2017-11-09] MEDS ORDERED: NS 500ML ONE (14:47)
[2017-11-09] MEDS ORDERED: D5NS 1000ml IV ONE (14:49)
--- NOTE | 2017-11-10 01:45 | Progress Note ---
DATE: 11/09/2017 CARDIOLOGY PROGRESS NOTE SUBJECTIVE: No chest pain. No shortness of breath. Less congestion. Monitored rhythm sinus. OBJECTIVE: VITAL SIGNS: Blood pressure 151/98, pulse 74, and respirations 20. NECK: Supple. Cervical collar in place. LUNGS: With few rhonchi. CARDIAC: Regular rhythm and rate. Normal S1 and S2 with a fourth heart sound. ABDOMEN: Soft. EXTREMITIES: No edema. IMPRESSION: 1. Healthcare-acquired pneumonia. 2. Sepsis. 3. Hypoxia. 4. Acute myocardial infarction. 5. Status post cervical disk surgery. 6. Cerebrovascular accident with left hemiparesis. 7. Obstructive cardiomyopathy with systolic anterior motion of the mitral valve. 8. Stable cardiac rhythm with no arrhythmias. PLAN: 1. Advance beta-destniy further. 2. Continue anti-platelet therapy and anti-lipid drugs. 3. Respiratory management. 4. Antimicrobials per primary care physician. 5. Stable for completion of recovery at halfway facility. Oswaldo Harris M.D. DR: Keron JOB#: [id number] CC:
--- NOTE | 2017-11-10 10:05 | Discharge Summary ---
Discharge Summary Discharge Summary _ DATE OF ADMISSION: 11/05/2017 DATE OF DISCHARGE: 11/09/2017 REASON FOR ADMISSION: 72 years old male with past medical history of hypertension , hyperlipidemia, recent cervical laminectomy, history of CVA with residual left hemiparesis, was sent from the assisted facility for evaluation due to hypoxemia. Patient was drowsy and unable to provide information. Upon evaluation patient was noted to have low-grade fever ,tachycardia , pulse oximetry was stable on room air. Laboratory workup revealed leukocytosis, WBC -16.2 ; troponin elevated- 0.966 ; proBNP -3491. EKG revealed sinus tachycardia right bundle branch block, no acute ischemic changes . Chest x-ray revealed evidence of pneumonia. Urinalysis was suggestive of UTI.Patient was given Aspirin. Septic workup initiated. Patient started on fluid resuscitation. Patient admitted with diagnosis of sepsis, pneumonia ,urinary tract infection, elevated troponin , possible NSTEMI, hypertension ,history of CVA the left hemiparesis, recent C- spine surgery. CONSULTANTS: recreation engineer HOSPITAL COURSE: Patient admitted to telemetry floor. Patient was started on IV fluids and empiric antibiotics. Supplemental oxygen provided as needed to keep pulse oximetry above 92% . Pulmonary toilet with bronchodilator provided. Patient was followed up with the chest x-rays. Antipruritic provided for fever control. Blood culture were negative.Urine culture revealed E coli. Fevers resolved. Leukocytosis resovled. Legal Billing Coordinator closely followed. Serial troponin trending down, still elevated, no acute ischemic changes on ECG. CTA of the chest revealed no evidence of pulmonary embolism, but showed bilateral basilar consolidations, suspicious for pneumonia. Echocardiogram revealed ejection fraction of 60-65%, severe left ventricular hypertrophy. Systolic anterior motion of mitral leaflet (LUIS) consistent with obstructive cardiomyopathy. Right ventricular systolic pressure of 40 consistent with mild pulmonary hypertension. Patient initially was hypotensive and all antihypertensive medications were on hold. No need for diuresis. Patient was continued on antiplatelet and statin therapy. Beta blockage was continued. As the blood pressure normalized, patient was started on antihypertensive regimen and anti-failure regimen. Venous duplex bilateral lower extremities was negative for evidence of acute DVT. DVT prophylaxis provided. Strict aspiration precautions were maintain. Nutritional recommendations implemented in plan of care. Patient demonstrated severe functional decline. Bowel regimen instituted. . Legal Billing Coordinator cleared patient for discharge to assisted facility, continue antiplatelet therapy. statin, beta blockage, continue antihypertensive and anti-failure regimen. FINAL DIAGNOSES: Acute myocardial infarction, NSTEMI type (likely precipitated by hypoxia) Sepsis Healthcare associated pneumonia UTI with Escherichia coli Hypertension Obstructive cardiomyopathy with systolic anterior motion Hypertensive heart disease Diastolic congestive heart failure Cervical disc disease, status post recent laminotomy Cerebrovascular disease with left hemiparesi Severe protein calorie malnutrition Aspiration risk Severe functional decline DISCHARGE MEDICATIONS: See Medication Reconciliation list. DISCHARGE INSTRUCTIONS: Patient was discharged to assisted facility. Follow up with healthcare provider at the facility. I have been assigned to dictate discharge summary for this account. I was not involved in the patient's management. Salina Rae NP Nov 10, 2017 10:05
== END 2017-11-09 14:00 | DRG 871 ==
LOC: EDBD 12:57 → EMR 13:34 → EDBEDREQ 15:06 → EDBEDREQSVC 15:25 → EDBEDREQ 15:47 → 2W 16:10 → 2E 11-08 18:19
DX: A41.9 Sepsis, unspecified organism (principal); J18.9 Pneumonia, unspecified organism; I50.33 Acute on chronic diastolic (congestive) heart failure; I21.A1 Myocardial infarction type 2; E43 Unspecified severe protein-calorie malnutrition; J91.8 Pleural effusion in other conditions classified elsewhere; N39.0 Urinary tract infection, site not specified; I42.8 Other cardiomyopathies; I69.354 Hemiplegia and hemiparesis following cerebral infarction affecting left non-dominant side; R09.02 Hypoxemia; Z87.891 Personal history of nicotine dependence; B96.20 Unspecified Escherichia coli [E. coli] as the cause of diseases classified elsewhere; E11.9 Type 2 diabetes mellitus without complications; I11.0 Hypertensive heart disease with heart failure; I45.10 Unspecified right bundle-branch block; E78.5 Hyperlipidemia, unspecified; D72.829 Elevated white blood cell count, unspecified; J44.9 Chronic obstructive pulmonary disease, unspecified; I27.20 Pulmonary hypertension, unspecified; N40.0 Benign prostatic hyperplasia without lower urinary tract symptoms; R00.0 Tachycardia, unspecified; Z68.21 Body mass index [BMI] 21.0-21.9, adult
CPT/HCPCS: 36415; 71045; 71275; 80048; 80053; 80061; 80202; 81003; 82248; 82550; 82553; 82962; 83605; 83735; 83880; 84153; 84443; 84484; 85007; 85025; 85610; 85730; 87040; 87081; 87086; 87181; 93005; 93306; 93970; 94640; 94664; 94760; 99285; J7620

== ENCOUNTER 2017-11-12 21:28 | Emergency (ER) | payer OTHER ==
[~2017-11-12] VITALS: Ht 188 cm; Wt 81.6 kg
[~2017-11-12 21:28] MED LIST: ACETAMINOP160 MG/51 ORAL; ATORVASTATIN CA20 MG ORAL; BACLOFEN10 MG ORAL; BENADRYL25 MG ORAL; BENAZEPRIL HCL20 MG ORAL; CATAPRES0.1 MG ORAL; CHLORPROMAZINE50 MG PO; COLACE100 MG ORAL; DUONEB 0.5-3(2.53 ML HHN; ENEMA133 M1 RC; FAMOTIDINE20 MG ORAL; FERROUS SULFAT325 MG ORAL; GUAIFENESI100 MG/5 M ORAL; HYDRALAZINE HCL50 MG ORAL
[2017-11-12 21:50] VITALS: BP 138/90
--- NOTE | 2017-11-12 22:21 | Diagnostic Imaging Report ---
EXAM: XR Chest, 1 View CLINICAL HISTORY: SOB TECHNIQUE: Frontal view of the chest. COMPARISON: No relevant prior studies available. FINDINGS: Lungs: Bilateral ground-glass/airspace opacities. Retrocardiac atelectasis/consolidation. Pleural space: Unremarkable. No pneumothorax. Heart: Large cardiac silhouette. Mediastinum: Unremarkable. Bones/joints: No acute fracture. Soft tissues: Hardware in the cervical spine. Skin ilan. IMPRESSION: 1. Bilateral ground-glass/airspace opacities. May be from edema. 2. Retrocardiac atelectasis/consolidation.
[2017-11-12 22:24] LABS: BASOPHILS % (AUTO) 1.5 % (0.0-2.0); HEMATOCRIT 28.3 % (42.0-52.0); HEMOGLOBIN 9.7 G/DL (14.2-18.0); LYMPHOCYTES % (AUTO) 22.1 % (20.0-45.0); MEAN CORPUSCULAR VOLUME 88 FL (80-99); MONOCYTES % (AUTO) 7.6 % (1.0-10.0); PLATELET COUNT 362 K/UL (150-450); RED BLOOD COUNT 3.23 M/UL (4.70-6.10); RED CELL DISTRIBUTION WIDTH 12.4 % (11.6-14.8); WHITE BLOOD COUNT 6.7 K/UL (4.8-10.8)
[2017-11-12 22:31] LABS: INR 1.1 (0.9-1.1)
[2017-11-12 22:36] LABS: ANION GAP 6 mmol/L (5-15); BLOOD UREA NITROGEN 8 mg/dL (7-18); CALCIUM 8.6 MG/DL (8.5-10.1); CARBON DIOXIDE 28 MMOL/L (21-32); CHLORIDE 108 MMOL/L (98-107); SODIUM 142 MMOL/L (136-145)
[2017-11-12 22:54] LABS: ALANINE AMINOTRANSFERASE 28 U/L (12-78); ALBUMIN 2.2 G/DL (3.4-5.0); ALBUMIN/GLOBULIN RATIO 0.6 (1.0-2.7); ALKALINE PHOSPHATASE 73 U/L (46-116); ASPARTATE AMINO TRANSFERASE 29 U/L (15-37); BILIRUBIN,TOTAL 0.4 MG/DL (0.2-1.0); CKMB 3.6 NG/ML (0.0-3.6); CREATINE KINASE 46 U/L (26-308)
[2017-11-12 23:30] VITALS: BP 126/89
[2017-11-13 00:25] VITALS: BP 130/87
--- NOTE | 2017-11-13 00:50 | Emergency Room Report ---
History of Present Illness General Chief Complaint: Fever Source: Medical Record, EMS Present Illness HPI Patient was recently disposition from the hospital to nursing facility Patient had decreasing troponin levels And baseline chest x-ray Nursing facility documented temperature of 101 And patient was transferred to the emergency room There was also concern about possible shortness of breath Patient himself is nonverbal with us History of present illness remains significantly limited Patient has previous CVA with left-sided deficit and chronic debility Allergies: Coded Allergies: No Known Allergies (Unverified , 11/05/17) Patient History Limited by: medical condition Past Medical History: see triage record Pertinent Family History: unable to obtain Reviewed Nursing Documentation: PMH: Agreed; PSxH: Agreed Nursing Documentation-PMH Hx Cardiac Problems: Yes Hx Hypertension: Yes Hx COPD: Yes Hx Diabetes: Yes Hx Cancer: No Hx Gastrointestinal Problems: No Hx Neurological Problems: Yes Hx Cerebrovascular Accident: Yes - TIA Hx Weakness: Yes - extremeties Review of Systems All Other Systems: limited - Other than the ones mentioned in the history of present illness all others are reviewed however they do stay limited due to the patient's mental status Physical Exam Vital Signs Date Time Temp Pulse Resp B/P (MAP) Pulse Ox O2 Delivery O2 Flow Rate FiO2 11/12/17 21:32 92 18 119/79 96 Room Air 11/12/17 21:50 98.5 98.5 Sp02 EP Interpretation: reviewed, normal General Appearance: mild distress - Appeared mildly tachypneic Head: normocephalic, atraumatic Eyes: bilateral eye PERRL ENT: dry mucus membranes Neck: supple, other Respiratory: no retraction, no accessory muscle use, crackles - Both lower lobes Cardiovascular #1: regular rate, rhythm, edema Gastrointestinal: soft, no mass Musculoskeletal: other - Patient has right leg flexed upward, does not follow commands, left-sided hemiparesis Neurologic: responsive - 2 physical stimuli, otherwise nonverbal with us Skin: other - Edema noted in both lower extremities Lymphatic: no adenopathy Medical Decision Making Diagnostic Impression: Primary Impression: Fever Additional Impressions: CHF (congestive heart failure) Elevated troponin ER Course Patient is a fairly complex patient with multiple differential to consideration including but not limited to cardiac cardiopulmonary and vascular emergencies Patient's troponin levels are elevated however appear to be decreasing from previous discharge X-ray shows continuing bilateral lower lobe atelectasis and markings Patient remains otherwise hemodynamically stable at this time requiring admission secondary to insurance purposes patient requires transfer Labs Test 11/12/17 22:00 White Blood Count 6.7 K/UL (4.8-10.8) Red Blood Count 3.23 M/UL (4.70-6.10) Hemoglobin 9.7 G/DL (14.2-18.0) Hematocrit 28.3 % (42.0-52.0) Mean Corpuscular Volume 88 FL (80-99) Mean Corpuscular Hemoglobin 30.1 PG (27.0-31.0) Mean Corpuscular Hemoglobin Concent 34.4 G/DL (32.0-36.0) Red Cell Distribution Width 12.4 % (11.6-14.8) Platelet Count 362 K/UL (150-450) Mean Platelet Volume 6.2 FL (6.5-10.1) Neutrophils (%) (Auto) 68.0 % (45.0-75.0) Lymphocytes (%) (Auto) 22.1 % (20.0-45.0) Monocytes (%) (Auto) 7.6 % (1.0-10.0) Eosinophils (%) (Auto) 1.0 % (0.0-3.0) Basophils (%) (Auto) 1.5 % (0.0-2.0) Prothrombin Time 11.4 SEC (9.30-11.50) Prothromb Time International Ratio 1.1 (0.9-1.1) Activated Partial Thromboplast Time 29 SEC (23-33) Sodium Level 142 MMOL/L (136-145) Potassium Level 4.0 MMOL/L (3.5-5.1) Chloride Level 108 MMOL/L (98-107) Carbon Dioxide Level 28 MMOL/L (21-32) Anion Gap 6 mmol/L (5-15) Blood Urea Nitrogen 8 mg/dL (7-18) Creatinine 1.0 MG/DL (0.55-1.30) Estimat Glomerular Filtration Rate mL/min (>60) Glucose Level 87 MG/DL (74-106) Lactic Acid Level 0.80 mmol/L (0.4-2.0) Calcium Level 8.6 MG/DL (8.5-10.1) Total Bilirubin 0.4 MG/DL (0.2-1.0) Aspartate Amino Transf (AST/SGOT) 29 U/L (15-37) Alanine Aminotransferase (ALT/SGPT) 28 U/L (12-78) Alkaline Phosphatase 73 U/L (46-116) Total Creatine Kinase 46 U/L (26-308) Creatine Kinase MB 3.6 NG/ML (0.0-3.6) Creatine Kinase MB Relative Index 7.8 Troponin I 0.569 ng/mL (0.000-0.056) Pro-B-Type Natriuretic Peptide 4547 pg/mL (0-125) Total Protein 5.8 G/DL (6.4-8.2) Albumin 2.2 G/DL (3.4-5.0) Globulin 3.6 g/dL Albumin/Globulin Ratio 0.6 (1.0-2.7) Lipase 204 U/L (73-393) EKG Diagnostic Results Rate: normal Rhythm: NSR ST Segments: other - nonspecific ST-T wave changes Rhythm Strip Diag. Results EP Interpretation: yes Rate: 77 Rhythm: NSR, no PVC's, no ectopy Chest X-Ray Diagnostic Results Chest X-Ray Diagnostic Results : Chest X-Ray Ordered: Yes # of Views/Limited/Complete: 1 View Indication: Chest Pain EP Interpretation: Yes Interpretation: no pneumothorax, other - Bilateral atelectasis increased marking in the right lower lobe, consideration for infiltrate, borderline cardiomegaly Impression: Other - Bilateral atelectasis Electronically Signed by: Bibi Castro DO Last Vital Signs Date Time Temp Pulse Resp B/P (MAP) Pulse Ox O2 Delivery O2 Flow Rate FiO2 11/12/17 23:30 98.6 84 19 126/89 99 Room Air 98.6 Status: improved Disposition: XFER [facility] HOSP Condition: Improved Referrals: NON PHYSICIAN (PCP) Bibi Castro DO Nov 13, 2017 00:50
[2017-11-13 00:55] VITALS: BP 128/84
[2017-11-13 01:09] VITALS: BP 128/84
--- NOTE | 2017-11-16 14:19 | Cardiology Report ---
APPROVED REPORT EKG Measurement Heart [id number] ID [id number] Sinus rhythm with premature supraventricular complexes Possible Left atrial enlargement Left ventricular hypertrophy with QRS widening and repolarization abnormality Abnormal ECG
== END 2017-11-13 01:12 | disposition short-term general hospital (02) ==
LOC: EDBD 21:28 → EMR 21:48
DX: I50.9 Heart failure, unspecified (principal); R50.9 Fever, unspecified; E11.9 Type 2 diabetes mellitus without complications; I10 Essential (primary) hypertension; J44.9 Chronic obstructive pulmonary disease, unspecified; Z86.73 Personal history of transient ischemic attack (TIA), and cerebral infarction without residual deficits; R79.89 Other specified abnormal findings of blood chemistry
CPT/HCPCS: 36415; 71045; 80053; 82550; 82553; 82962; 83605; 83690; 83880; 84484; 85025; 85610; 85730; 87040; 87081; 93005; 99285